=== PATIENT | female | born 1955 | race Caucasian/White ===

== ENCOUNTER 2019-11-13 04:33 | Outpatient (RCR) | payer OTHER, SELFPAY ==
[2019-10-30] MEDS: Normal Saline Flush 10 ML SYR IVP (09:10)
[2019-10-30] MEDS: Heparin 500 UNITS/5 ML SYRINGE IV (09:10)
[2019-10-30 09:41] LABS: Abs Immature Grans 0.39 10^3/uL (0.0-0.06); HCT 31.3 % (36.0-46.0); HGB 10.4 g/dL (11.2-15.7); MCH 30.1 pg (27.0-33.0); MCHC 33.2 % (32.0-36.0); MCV 90.7 fL (80-95); MPV 10.4 fL (8.0-11.0); Nucleated RBC 0 %; RBC 3.45 10^6/uL (3.93-5.22); RDW 13.9 % (11.7-14.6); RDW-SD 45.9 fL; WBC 6.67 10^3/uL (4.4-10.8)
[2019-10-30 09:59] LABS: ALT 69 U/L (14-59); AST 32 U/L (15-37); Albumin 2.2 g/dL (3.4-5.0); Alkaline Phosphatase 380 U/L (46-116); Anion Gap 6.1 mmol/L (3-11); BUN 23 mg/dL (7-18); Bilirubin, Total 0.5 mg/dL (0.2-1.0); CO2 26.9 mmol/L (21.0-32.0); CREATININE 0.71 mg/dL (0.55-1.02); Calcium 7.9 mg/dL (8.5-10.1); Chloride 101 mmol/L (98-107); Glucose 119 mg/dL (74-106); Sodium 134 mmol/L (136-145)
[2019-10-30 10:01] LABS: Absolute Basophil Count 0.07 10^3/uL (0.0-0.2); Absolute Eosinophil Count 0.07 10^3/uL (0.0-0.7); Absolute Neutrophil Count 2.93 10^3/uL (1.2-6.7); Bands % 4; Diff Comment Manual Differential; Myelocytes % 3; Polychromasia Present
[2019-10-30 10:02] LABS: Platelet Count 696 10^3/uL (130-400)
[2019-11-13] MEDS: Normal Saline Flush 10 ML SYR IVP (07:30)
[2019-11-13 07:53] LABS: Abs Immature Grans 0.07 10^3/uL (0.0-0.06); Absolute Basophil Count 0.01 10^3/uL (0.0-0.2); Absolute Eosinophil Count 0.03 10^3/uL (0.0-0.7); Absolute Lymphocyte Count 2.13 10^3/uL (1.2-3.4); Absolute Neutrophil Count 3.97 10^3/uL (1.2-6.7); Basophils % 0.1; Eosinophils % 0.4; HCT 34.7 % (36.0-46.0); HGB 11.6 g/dL (11.2-15.7); Immature Grans % 0.9; Lymphocytes % 28.7; MCH 30.1 pg (27.0-33.0); MCHC 33.4 % (32.0-36.0); MCV 90.1 fL (80-95); MPV 10.2 fL (8.0-11.0); Monocytes % 16.2; Neutrophils % 53.7; Nucleated RBC 0 %; Platelet Count 310 10^3/uL (130-400); RBC 3.85 10^6/uL (3.93-5.22); RDW 14.5 % (11.7-14.6); RDW-SD 46.4 fL; WBC 7.41 10^3/uL (4.4-10.8)
[2019-11-13 08:09] LABS: ALT 62 U/L (14-59); AST 36 U/L (15-37); Albumin 2.4 g/dL (3.4-5.0); Alkaline Phosphatase 158 U/L (46-116); Anion Gap 8.2 mmol/L (3-11); BUN 21 mg/dL (7-18); Bilirubin, Total 0.4 mg/dL (0.2-1.0); CO2 23.8 mmol/L (21.0-32.0); CREATININE 0.58 mg/dL (0.55-1.02); Chloride 104 mmol/L (98-107); Glucose 149 mg/dL (74-106); Magnesium 2.1 mg/dL (1.8-2.4); Potassium 3.8 mmol/L (3.5-5.1); Sodium 136 mmol/L (136-145); Total Protein 6.2 g/dL (6.4-8.2); Triglyceride 102 mg/dL (<150)
[2019-11-13 08:20] LABS: PHOSPHORUS 3.8 mg/dL (2.6-4.7)
== END 2019-11-18 23:59 | disposition home or self-care (01) ==
LOC: INF 04:33
PROVIDERS: PCP Family Medicine; Visit Provider Internal Medicine Hematology & Oncology
DX: C16.9 Malignant neoplasm of stomach, unspecified (principal); E43 Unspecified severe protein-calorie malnutrition; Z45.2 Encounter for adjustment and management of vascular access device
CPT/HCPCS: 36591; 80053; 83735; 84100; 84478; 85025

== ENCOUNTER 2019-12-11 05:47 | Outpatient (RCR) | payer OTHER, SELFPAY ==
[2019-11-27] MEDS: Normal Saline Flush 10 ML SYR IVP (08:09)
[2019-11-27 08:13] LABS: Abs Immature Grans 0.44 10^3/uL (0.0-0.06); HGB 11.2 g/dL (11.2-15.7); MCH 29.6 pg (27.0-33.0); MCHC 32.9 % (32.0-36.0); MCV 89.9 fL (80-95); MPV 10.2 fL (8.0-11.0); Nucleated RBC 0 %; Platelet Count 298 10^3/uL (130-400); RBC 3.78 10^6/uL (3.93-5.22); RDW 15.3 % (11.7-14.6); RDW-SD 49.8 fL; WBC 6.61 10^3/uL (4.4-10.8)
[2019-11-27 08:25] LABS: ALT 68 U/L (14-59); AST 44 U/L (15-37); Albumin 2.1 g/dL (3.4-5.0); Alkaline Phosphatase 189 U/L (46-116); BUN 23 mg/dL (7-18); Bilirubin, Total 0.3 mg/dL (0.2-1.0); CREATININE 0.63 mg/dL (0.55-1.02); Calcium 8.3 mg/dL (8.5-10.1); Chloride 105 mmol/L (98-107); Glucose 129 mg/dL (74-106); Potassium 4.1 mmol/L (3.5-5.1); Sodium 138 mmol/L (136-145); Total Protein 6.1 g/dL (6.4-8.2)
[2019-11-27 08:33] LABS: Absolute Lymphocyte Count 2.78 10^3/uL (1.2-3.4); Absolute Monocyte Count 1.19 10^3/uL (0.1-0.8); Absolute Neutrophil Count 2.12 10^3/uL (1.2-6.7); Atypical Lymphocytes % 2; Bands % 6; Diff Comment Manual Differential; Metamyelocytes % 1; Myelocytes % 4
[2019-11-27 08:34] LABS: Polychromasia Present
[2019-11-27 18:45] LABS: CEA 2.3 ng/mL (See Note)
[2019-12-11 09:25] LABS: Abs Immature Grans 0.04 10^3/uL (0.0-0.06); Absolute Basophil Count 0.01 10^3/uL (0.0-0.2); Absolute Eosinophil Count 0.08 10^3/uL (0.0-0.7); Absolute Monocyte Count 0.77 10^3/uL (0.1-0.8); Absolute Neutrophil Count 1.88 10^3/uL (1.2-6.7); Basophils % 0.2; Eosinophils % 1.5; HCT 33.8 % (36.0-46.0); Immature Grans % 0.8; Lymphocytes % 47.3; MCH 29.4 pg (27.0-33.0); MCHC 32.5 % (32.0-36.0); MCV 90.4 fL (80-95); MPV 10.9 fL (8.0-11.0); Monocytes % 14.6; Neutrophils % 35.6; Nucleated RBC 0 %; Platelet Count 253 10^3/uL (130-400); RBC 3.74 10^6/uL (3.93-5.22); RDW 15.9 % (11.7-14.6); RDW-SD 51.6 fL; WBC 5.28 10^3/uL (4.4-10.8)
[2019-12-11] MEDS: Normal Saline Flush 10 ML SYR IVP (09:33)
[2019-12-11 09:40] LABS: ALT 45 U/L (14-59); AST 33 U/L (15-37); Albumin 2.6 g/dL (3.4-5.0); Alkaline Phosphatase 137 U/L (46-116); Anion Gap 7.7 mmol/L (3-11); BUN 26 mg/dL (7-18); Bilirubin, Total 0.3 mg/dL (0.2-1.0); CO2 24.3 mmol/L (21.0-32.0); CREATININE 0.76 mg/dL (0.55-1.02); Calcium 8.8 mg/dL (8.5-10.1); Chloride 104 mmol/L (98-107); Glucose 141 mg/dL (74-106); Potassium 4.5 mmol/L (3.5-5.1); Sodium 136 mmol/L (136-145); Total Protein 6.9 g/dL (6.4-8.2); Triglyceride 178 mg/dL (<150)
[2019-12-11 09:50] LABS: PHOSPHORUS 5.5 mg/dL (2.6-4.7)
[2019-12-11 21:46] LABS: CEA 2.7 ng/mL (See Note)
== END 2019-12-19 23:59 | disposition home or self-care (01) ==
LOC: INF 05:47
PROVIDERS: PCP Family Medicine; Visit Provider Internal Medicine Hematology & Oncology
DX: C16.9 Malignant neoplasm of stomach, unspecified (principal); Z45.2 Encounter for adjustment and management of vascular access device; E43 Unspecified severe protein-calorie malnutrition
CPT/HCPCS: 36591; 80053; 82378; 83735; 84100; 84478; 85025

== ENCOUNTER 2020-01-15 05:31 | Outpatient (RCR) | payer OTHER, SELFPAY ==
[2019-12-25] MEDS: Normal Saline Flush 10 ML SYR IVP (08:21)
[2019-12-25 08:38] LABS: Abs Immature Grans 0.58 10^3/uL (0.0-0.06); Absolute Basophil Count 0.01 10^3/uL (0.0-0.2); Absolute Monocyte Count 2.17 10^3/uL (0.1-0.8); Absolute Neutrophil Count 6.27 10^3/uL (1.2-6.7); Basophils % 0.1; HCT 31.7 % (36.0-46.0); HGB 10.3 g/dL (11.2-15.7); Immature Grans % 5.7; Lymphocytes % 10.9; MCH 28.8 pg (27.0-33.0); MCHC 32.5 % (32.0-36.0); MCV 88.5 fL (80-95); MPV 11.5 fL (8.0-11.0); Monocytes % 21.4; Neutrophils % 61.9; Nucleated RBC 0 %; Platelet Count 181 10^3/uL (130-400); RBC 3.58 10^6/uL (3.93-5.22); RDW-SD 51.5 fL; WBC 10.13 10^3/uL (4.4-10.8)
[2019-12-25 08:47] LABS: ALT 235 U/L (14-59); AST 133 U/L (15-37); Albumin 2.4 g/dL (3.4-5.0); Alkaline Phosphatase 420 U/L (46-116); Anion Gap 11.3 mmol/L (3-11); BUN 24 mg/dL (7-18); Bilirubin, Total 1.2 mg/dL (0.2-1.0); CO2 23.7 mmol/L (21.0-32.0); CREATININE 0.84 mg/dL (0.55-1.02); Calcium 8.5 mg/dL (8.5-10.1); Chloride 103 mmol/L (98-107); Glucose 142 mg/dL (74-106); Potassium 3.9 mmol/L (3.5-5.1); Sodium 138 mmol/L (136-145); Total Protein 7.1 g/dL (6.4-8.2)
[2019-12-29 14:46] LABS: CEA 2.5 ng/ml
[2020-01-01] MEDS: Normal Saline Flush 10 ML SYR IVP (08:08)
[2020-01-01 08:13] LABS: Abs Immature Grans 3.38 10^3/uL (0.0-0.06); HCT 30.3 % (36.0-46.0); HGB 9.9 g/dL (11.2-15.7); MCH 28.9 pg (27.0-33.0); MCHC 32.7 % (32.0-36.0); MCV 88.3 fL (80-95); MPV 10.8 fL (8.0-11.0); Nucleated RBC 0 %; RBC 3.43 10^6/uL (3.93-5.22); RDW 17.1 % (11.7-14.6); WBC 19.71 10^3/uL (4.4-10.8)
[2020-01-01 08:32] LABS: ALT 68 U/L (14-59); AST 43 U/L (15-37); Albumin 2.4 g/dL (3.4-5.0); Alkaline Phosphatase 571 U/L (46-116); Anion Gap 13.3 mmol/L (3-11); BUN 25 mg/dL (7-18); Bilirubin, Total 0.3 mg/dL (0.2-1.0); CO2 21.7 mmol/L (21.0-32.0); CREATININE 0.84 mg/dL (0.55-1.02); Chloride 103 mmol/L (98-107); Glucose 105 mg/dL (74-106); Potassium 4.8 mmol/L (3.5-5.1); Sodium 138 mmol/L (136-145); Total Protein 7.9 g/dL (6.4-8.2)
[2020-01-01 08:35] LABS: Absolute Lymphocyte Count 3.35 10^3/uL (1.2-3.4); Absolute Neutrophil Count 11.63 10^3/uL (1.2-6.7); Bands % 9; Platelet Count 519 10^3/uL (130-400)
[2020-01-01 08:36] LABS: Absolute Eosinophil Count 0.39 10^3/uL (0.0-0.7); Absolute Monocyte Count 1.58 10^3/uL (0.1-0.8); Metamyelocytes % 6; Myelocytes % 8
[2020-01-01 08:37] LABS: Anisocytosis 1+; Diff Comment Manual Differential; Poikilocytes 1+; Polychromasia Present
[2020-01-04 16:23] LABS: CEA 1.4 ng/ml
[2020-01-15 10:31] LABS: Abs Immature Grans 0.01 10^3/uL (0.0-0.06); Absolute Basophil Count 0.01 10^3/uL (0.0-0.2); Absolute Eosinophil Count 0.06 10^3/uL (0.0-0.7); Absolute Lymphocyte Count 1.35 10^3/uL (1.2-3.4); Absolute Monocyte Count 0.72 10^3/uL (0.1-0.8); Basophils % 0.2; Eosinophils % 1.2; HCT 29.1 % (36.0-46.0); HGB 9.4 g/dL (11.2-15.7); Immature Grans % 0.2; Lymphocytes % 26.7; MCH 28.5 pg (27.0-33.0); MCHC 32.3 % (32.0-36.0); MCV 88.2 fL (80-95); MPV 10.4 fL (8.0-11.0); Monocytes % 14.3; Neutrophils % 57.4; Nucleated RBC 0 %; Platelet Count 192 10^3/uL (130-400); RDW 17.6 % (11.7-14.6); RDW-SD 55.8 fL; WBC 5.05 10^3/uL (4.4-10.8)
[2020-01-15 10:44] LABS: ALT 68 U/L (14-59); AST 56 U/L (15-37); Albumin 2.7 g/dL (3.4-5.0); Alkaline Phosphatase 301 U/L (46-116); Anion Gap 8.6 mmol/L (3-11); BUN 26 mg/dL (7-18); Bilirubin, Total 0.5 mg/dL (0.2-1.0); CO2 24.4 mmol/L (21.0-32.0); CREATININE 0.74 mg/dL (0.55-1.02); Calcium 8.8 mg/dL (8.5-10.1); Chloride 105 mmol/L (98-107); Glucose 100 mg/dL (74-106); Magnesium 2.1 mg/dL (1.8-2.4); PHOSPHORUS 4.3 mg/dL (2.6-4.7); Potassium 4.6 mmol/L (3.5-5.1); Sodium 138 mmol/L (136-145); Total Protein 7.2 g/dL (6.4-8.2)
[2020-01-15 18:31] LABS: CEA 1.6 ng/mL (See Note)
== END 2020-01-18 23:59 | disposition home or self-care (01) ==
LOC: INF 05:31
PROVIDERS: PCP Family Medicine; Visit Provider Internal Medicine Hematology & Oncology
DX: C16.9 Malignant neoplasm of stomach, unspecified (principal); Z45.2 Encounter for adjustment and management of vascular access device; E43 Unspecified severe protein-calorie malnutrition; C79.89 Secondary malignant neoplasm of other specified sites
CPT/HCPCS: 36591; 80053; 82378; 83735; 84100; 85025

== ENCOUNTER 2020-01-15 17:51 | Outpatient (REF) | payer OTHER, SELFPAY ==
[2020-01-15 20:19] LABS: Bilirubin Negative (Negative); Blood Large (Negative); Clarity Cloudy (Clear); Glucose Negative (Negative); Ketones Negative (Negative); Leukocyte Esterase Negative (Negative); Nitrite Negative (Negative); Urobilinogen 0.2 EU/dL (Up TO 0.2); pH 5.5 (5-8)
[2020-01-15 20:30] LABS: RBC >50 HPF (0-2)
[2020-01-15 20:31] LABS: Bacteria Negative HPF (Negative); C & S Indicated? No; Casts Negative LPF (Negative); Crystals Negative HPF (Negative); Epithelial Cells Few HPF (Negative); Mucus Moderate (Negative); Other Cells Few Yeast (Negative)
== END 2020-01-15 18:11 ==
LOC: NCHCN 17:51
PROVIDERS: PCP Family Medicine; Visit Provider Nurse Practitioner Family
DX: C79.9 Secondary malignant neoplasm of unspecified site (principal); C16.9 Malignant neoplasm of stomach, unspecified
CPT/HCPCS: 81003; 81015

== ENCOUNTER 2020-02-18 02:23 | Outpatient (RCR) | payer OTHER, SELFPAY ==
[2020-01-29] MEDS: Normal Saline Flush 10 ML SYR IVP (08:03)
[2020-01-29 08:14] LABS: Abs Immature Grans 0.02 10^3/uL (0.0-0.06); Absolute Basophil Count 0.02 10^3/uL (0.0-0.2); Absolute Eosinophil Count 0.04 10^3/uL (0.0-0.7); Absolute Lymphocyte Count 2.37 10^3/uL (1.2-3.4); Absolute Monocyte Count 0.94 10^3/uL (0.1-0.8); Absolute Neutrophil Count 3.01 10^3/uL (1.2-6.7); Basophils % 0.3; Eosinophils % 0.6; HCT 28.3 % (36.0-46.0); HGB 9.2 g/dL (11.2-15.7); Immature Grans % 0.3; MCH 28.8 pg (27.0-33.0); MCHC 32.5 % (32.0-36.0); MCV 88.7 fL (80-95); MPV 10.8 fL (8.0-11.0); Monocytes % 14.7; Neutrophils % 47.1; Nucleated RBC 0 %; Platelet Count 261 10^3/uL (130-400); RBC 3.19 10^6/uL (3.93-5.22); RDW-SD 54.4 fL
[2020-01-29 08:21] LABS: ALT 60 U/L (14-59); AST 54 U/L (15-37); Albumin 2.6 g/dL (3.4-5.0); Alkaline Phosphatase 275 U/L (46-116); Anion Gap 9.6 mmol/L (3-11); BUN 26 mg/dL (7-18); Bilirubin, Total 0.3 mg/dL (0.2-1.0); CO2 24.4 mmol/L (21.0-32.0); CREATININE 0.71 mg/dL (0.55-1.02); Calcium 8.7 mg/dL (8.5-10.1); Chloride 104 mmol/L (98-107); Glucose 121 mg/dL (74-106); Magnesium 2.2 mg/dL (1.8-2.4); Potassium 4.6 mmol/L (3.5-5.1); Sodium 138 mmol/L (136-145); Total Protein 7.1 g/dL (6.4-8.2); Triglyceride 149 mg/dL (<150)
[2020-01-29 08:31] LABS: PHOSPHORUS 4.7 mg/dL (2.6-4.7)
[2020-01-29 10:38] LABS: Iron 65 ug/dL (50-170); Total Iron Binding Capacity 345 ug/dL (250-450); Transferrin Sat 19 % (15-50)
[2020-01-29 10:53] LABS: Ferritin 110 ng/mL (8-252)
[2020-01-29 19:21] LABS: CEA 1.6 ng/mL (See Note)
[2020-02-18 10:48] LABS: Abs Immature Grans 0.08 10^3/uL (0.0-0.06); Absolute Basophil Count 0.03 10^3/uL (0.0-0.2); Absolute Eosinophil Count 0.04 10^3/uL (0.0-0.7); Absolute Lymphocyte Count 2.65 10^3/uL (1.2-3.4); Absolute Monocyte Count 1.11 10^3/uL (0.1-0.8); Absolute Neutrophil Count 3.21 10^3/uL (1.2-6.7); Basophils % 0.4; Eosinophils % 0.6; HCT 27.7 % (36.0-46.0); HGB 8.7 g/dL (11.2-15.7); Immature Grans % 1.1; Lymphocytes % 37.2; MCH 28.1 pg (27.0-33.0); MCHC 31.4 % (32.0-36.0); MCV 89.4 fL (80-95); MPV 10.8 fL (8.0-11.0); Monocytes % 15.6; Neutrophils % 45.1; Nucleated RBC 0 %; Platelet Count 381 10^3/uL (130-400); RDW-SD 53.9 fL; WBC 7.12 10^3/uL (4.4-10.8)
[2020-02-18] MEDS: Normal Saline Flush 10 ML SYR IVP (10:52)
[2020-02-18 11:01] LABS: ALT 97 U/L (14-59); AST 88 U/L (15-37); Alkaline Phosphatase 395 U/L (46-116); BUN 16 mg/dL (7-18); Bilirubin, Total 0.6 mg/dL (0.2-1.0); CREATININE 1.11 mg/dL (0.55-1.02); Calcium 9.2 mg/dL (8.5-10.1); Chloride 105 mmol/L (98-107); Estimated GFR 49.49 (mL/min/1.73m2); Glucose 111 mg/dL (74-106); Magnesium 1.9 mg/dL (1.8-2.4); PHOSPHORUS 5.9 mg/dL (2.6-4.7); Sodium 137 mmol/L (136-145); Total Protein 7.4 g/dL (6.4-8.2)
[2020-02-18 11:02] LABS: Anisocytosis 1+; Diff Comment RBC Morph Reviewed; Hypochromasia 1+; Microcytosis 1+; Polychromasia Present
[2020-02-18 11:03] LABS: Poikilocytes 1+
[2020-02-18 11:11] LABS: Triglyceride 129 mg/dL (<150)
[2020-02-19 08:41] LABS: CEA 1.2 ng/mL (See Note)
== END 2020-02-18 23:59 | disposition home or self-care (01) ==
LOC: INF 02:23
PROVIDERS: PCP Family Medicine; Visit Provider Internal Medicine Hematology & Oncology
DX: C16.9 Malignant neoplasm of stomach, unspecified (principal); Z45.2 Encounter for adjustment and management of vascular access device; E43 Unspecified severe protein-calorie malnutrition; R31.0 Gross hematuria; C79.89 Secondary malignant neoplasm of other specified sites
CPT/HCPCS: 36591; 80053; 82378; 82728; 83540; 83550; 83735; 84100; 84478; 85025

== ENCOUNTER 2020-02-24 04:25 | Outpatient (CLI) | payer OTHER, SELFPAY | END 2020-02-24 04:45 | PROVIDERS: PCP Family Medicine; Visit Provider Urology | DX: N13.30 Unspecified hydronephrosis (principal) | CPT/HCPCS: 87086 ==

== ENCOUNTER 2020-03-18 04:53 | Outpatient (RCR) | payer OTHER, SELFPAY ==
[2020-03-04] MEDS: Normal Saline Flush 10 ML SYR IVP (08:51)
[2020-03-04 09:06] LABS: Abs Immature Grans 0.02 10^3/uL (0.0-0.06); Absolute Basophil Count 0.01 10^3/uL (0.0-0.2); Absolute Eosinophil Count 0.13 10^3/uL (0.0-0.7); Absolute Lymphocyte Count 2.21 10^3/uL (1.2-3.4); Absolute Monocyte Count 0.99 10^3/uL (0.1-0.8); Absolute Neutrophil Count 4.29 10^3/uL (1.2-6.7); Basophils % 0.1; Eosinophils % 1.7; HCT 22.9 % (36.0-46.0); HGB 7.5 g/dL (11.2-15.7); Immature Grans % 0.3; Lymphocytes % 28.9; MCH 28.1 pg (27.0-33.0); MCHC 32.8 % (32.0-36.0); MCV 85.8 fL (80-95); MPV 12.1 fL (8.0-11.0); Monocytes % 12.9; Neutrophils % 56.1; Nucleated RBC 0 %; Platelet Count 296 10^3/uL (130-400); RBC 2.67 10^6/uL (3.93-5.22); RDW 16.7 % (11.7-14.6); RDW-SD 50.9 fL; WBC 7.65 10^3/uL (4.4-10.8)
[2020-03-04 09:27] LABS: ALT 57 U/L (14-59); AST 52 U/L (15-37); Albumin 2.7 g/dL (3.4-5.0); Alkaline Phosphatase 316 U/L (46-116); Anion Gap 8.2 mmol/L (3-11); BUN 23 mg/dL (7-18); Bilirubin, Total 0.4 mg/dL (0.2-1.0); CO2 23.8 mmol/L (21.0-32.0); Calcium 8.5 mg/dL (8.5-10.1); Chloride 107 mmol/L (98-107); Glucose 124 mg/dL (74-106); Potassium 4.5 mmol/L (3.5-5.1); Sodium 139 mmol/L (136-145); Total Protein 6.9 g/dL (6.4-8.2)
[2020-03-04 19:27] LABS: CEA 1.5 ng/mL (See Note)
[2020-03-07] VITALS (7 sets, daily range): BP systolic 90–108; BP diastolic 58–71; PULSE 74–90; RESP 18–19; TEMP 36.5–37.4; O2SAT 97–98
[2020-03-07] MEDS: Heparin 500 UNITS/5 ML SYRINGE IV (10:30)
[2020-03-07] MEDS: Normal Saline Flush 10 ML SYR IVP (10:30)
[2020-03-18] MEDS: Normal Saline Flush 10 ML SYR IVP (08:30)
[2020-03-18 08:45] LABS: Abs Immature Grans 0.02 10^3/uL (0.0-0.06); Absolute Basophil Count 0.01 10^3/uL (0.0-0.2); Absolute Eosinophil Count 0.11 10^3/uL (0.0-0.7); Absolute Lymphocyte Count 2.05 10^3/uL (1.2-3.4); Absolute Monocyte Count 1.42 10^3/uL (0.1-0.8); Absolute Neutrophil Count 3.43 10^3/uL (1.2-6.7); Basophils % 0.1; Eosinophils % 1.6; HCT 28.4 % (36.0-46.0); HGB 8.9 g/dL (11.2-15.7); Immature Grans % 0.3; Lymphocytes % 29.1; MCH 26.9 pg (27.0-33.0); MCHC 31.3 % (32.0-36.0); MCV 85.8 fL (80-95); Monocytes % 20.2; Neutrophils % 48.7; Nucleated RBC 0 %; Platelet Count 298 10^3/uL (130-400); RBC 3.31 10^6/uL (3.93-5.22); RDW 16.5 % (11.7-14.6); RDW-SD 50.5 fL; WBC 7.04 10^3/uL (4.4-10.8)
[2020-03-18 08:59] LABS: Anisocytosis 2+; Diff Comment RBC Morph Reviewed; Hypochromasia 1+; Microcytosis 1+
[2020-03-18 09:00] LABS: Poikilocytes 2+
[2020-03-18 09:53] LABS: ALT 50 U/L (14-59); AST 38 U/L (15-37); Albumin 2.5 g/dL (3.4-5.0); Alkaline Phosphatase 352 U/L (46-116); Anion Gap 8.5 mmol/L (3-11); BUN 23 mg/dL (7-18); Bilirubin, Total 0.4 mg/dL (0.2-1.0); CO2 22.5 mmol/L (21.0-32.0); CREATININE 0.8 mg/dL (0.55-1.02); Calcium 8.6 mg/dL (8.5-10.1); Chloride 106 mmol/L (98-107); Glucose 120 mg/dL (74-106); Magnesium 2.2 mg/dL (1.8-2.4); Potassium 4.1 mmol/L (3.5-5.1); Sodium 137 mmol/L (136-145); Triglyceride 122 mg/dL (<150)
[2020-03-18 09:56] LABS: PHOSPHORUS 4.4 mg/dL (2.6-4.7)
== END 2020-03-20 23:59 | disposition home or self-care (01) ==
LOC: INF 04:53
PROVIDERS: PCP Family Medicine; Visit Provider Internal Medicine Hematology & Oncology
DX: C16.9 Malignant neoplasm of stomach, unspecified (principal); C79.9 Secondary malignant neoplasm of unspecified site; E43 Unspecified severe protein-calorie malnutrition; R31.0 Gross hematuria; Z45.2 Encounter for adjustment and management of vascular access device
CPT/HCPCS: 36430; 36591; 80053; 86850; 86900; 86901; 86920; 82378; 83735; 84100; 84478; 85025; P9016

== ENCOUNTER 2020-04-15 04:42 | Outpatient (RCR) | payer OTHER, SELFPAY ==
[2020-03-21 00:14] VITALS: BP 108/71; PULSE 74; RESP 18; TEMP 36.5
[2020-04-01] MEDS: Normal Saline Flush 10 ML SYR IVP (10:24)
[2020-04-01 10:30] LABS: Abs Immature Grans 0.02 10^3/uL (0.0-0.06); Absolute Basophil Count 0.01 10^3/uL (0.0-0.2); Absolute Eosinophil Count 0.06 10^3/uL (0.0-0.7); Absolute Lymphocyte Count 1.45 10^3/uL (1.2-3.4); Absolute Monocyte Count 1.24 10^3/uL (0.1-0.8); Absolute Neutrophil Count 2.27 10^3/uL (1.2-6.7); Basophils % 0.2; Eosinophils % 1.2; HCT 25.6 % (36.0-46.0); HGB 8.1 g/dL (11.2-15.7); Immature Grans % 0.4; Lymphocytes % 28.7; MCH 26.5 pg (27.0-33.0); MCHC 31.6 % (32.0-36.0); MCV 83.7 fL (80-95); MPV 12.2 fL (8.0-11.0); Monocytes % 24.6; Neutrophils % 44.9; Nucleated RBC 0 %; Platelet Count 299 10^3/uL (130-400); RBC 3.06 10^6/uL (3.93-5.22); RDW 16.8 % (11.7-14.6); RDW-SD 50.2 fL; WBC 5.05 10^3/uL (4.4-10.8)
[2020-04-01 10:43] LABS: ALT 50 U/L (14-59); AST 47 U/L (15-37); Albumin 2.6 g/dL (3.4-5.0); Alkaline Phosphatase 429 U/L (46-116); Anion Gap 8.8 mmol/L (3-11); BUN 9 mg/dL (7-18); Bilirubin, Total 0.6 mg/dL (0.2-1.0); CO2 25.2 mmol/L (21.0-32.0); Calcium 8.9 mg/dL (8.5-10.1); Chloride 103 mmol/L (98-107); Estimated GFR 55.82 (mL/min/1.73m2); Glucose 99 mg/dL (74-106); Potassium 4.1 mmol/L (3.5-5.1); Sodium 137 mmol/L (136-145); Total Protein 7.1 g/dL (6.4-8.2)
[2020-04-01 14:19] LABS: Magnesium 2.3 mg/dL (1.8-2.4); PHOSPHORUS 5.1 mg/dL (2.6-4.7)
[2020-04-01 14:33] LABS: Triglyceride 114 mg/dL (<150)
[2020-04-01 18:54] LABS: CEA 1.8 ng/mL (See Note)
[2020-04-04] VITALS (7 sets, daily range): BP systolic 90–111; BP diastolic 47–65; PULSE 75–88; RESP 12–18; TEMP 36.1–37.8; O2SAT 95–98
[2020-04-04] MEDS: Normal Saline Flush 10 ML SYR IVP (11:19)
[2020-04-04] MEDS: Heparin 500 UNITS/5 ML SYRINGE IV (11:19)
[2020-04-15] MEDS: Normal Saline Flush 10 ML SYR IVP (09:05)
[2020-04-15 09:07] LABS: Abs Immature Grans 0.01 10^3/uL (0.0-0.06); Absolute Basophil Count 0.01 10^3/uL (0.0-0.2); Absolute Eosinophil Count 0.09 10^3/uL (0.0-0.7); Absolute Lymphocyte Count 1.75 10^3/uL (1.2-3.4); Absolute Monocyte Count 1.11 10^3/uL (0.1-0.8); Absolute Neutrophil Count 1.72 10^3/uL (1.2-6.7); Basophils % 0.2; Eosinophils % 1.9; HCT 25.8 % (36.0-46.0); HGB 8.4 g/dL (11.2-15.7); Immature Grans % 0.2; Lymphocytes % 37.3; MCH 26.8 pg (27.0-33.0); MCHC 32.6 % (32.0-36.0); MCV 82.4 fL (80-95); Monocytes % 23.7; Neutrophils % 36.7; Nucleated RBC 0 %; Platelet Count 271 10^3/uL (130-400); RBC 3.13 10^6/uL (3.93-5.22); RDW 17.2 % (11.7-14.6); RDW-SD 50.7 fL; WBC 4.69 10^3/uL (4.4-10.8)
[2020-04-15 09:21] LABS: ALT 53 U/L (14-59); AST 48 U/L (15-37); Albumin 2.6 g/dL (3.4-5.0); Alkaline Phosphatase 379 U/L (46-116); Anion Gap 9.8 mmol/L (3-11); BUN 14 mg/dL (7-18); Bilirubin, Total 0.5 mg/dL (0.2-1.0); CO2 24.2 mmol/L (21.0-32.0); Calcium 8.9 mg/dL (8.5-10.1); Chloride 104 mmol/L (98-107); Estimated GFR 55.82 (mL/min/1.73m2); Glucose 99 mg/dL (74-106); PHOSPHORUS 4.9 mg/dL (2.6-4.7); Potassium 3.9 mmol/L (3.5-5.1); Sodium 138 mmol/L (136-145); Total Protein 7.2 g/dL (6.4-8.2)
[2020-04-15 09:32] LABS: Triglyceride 136 mg/dL (<150)
[2020-04-15 17:39] LABS: CEA 1.7 ng/mL (See Note)
== END 2020-04-17 23:59 | disposition home or self-care (01) ==
LOC: INF 04:42
PROVIDERS: PCP Family Medicine; Visit Provider Internal Medicine Hematology & Oncology
DX: C16.9 Malignant neoplasm of stomach, unspecified (principal); D63.0 Anemia in neoplastic disease; Z79.899 Other long term (current) drug therapy; K92.2 Gastrointestinal hemorrhage, unspecified; C79.9 Secondary malignant neoplasm of unspecified site; Z45.2 Encounter for adjustment and management of vascular access device
CPT/HCPCS: 36430; 36591; 80053; 86850; 86900; 86901; 86920; 82378; 83735; 84100; 84478; 85025; P9016

== ENCOUNTER 2020-05-12 07:25 | Outpatient (RCR) | payer OTHER, SELFPAY ==
[2020-04-18 00:09] VITALS: BP 111/60; PULSE 75; RESP 12; TEMP 36.4
[2020-04-28] VITALS (9 sets, daily range): BP systolic 94–123; BP diastolic 57–79; PULSE 85–101; RESP 16; TEMP 36.5–37.8; O2SAT 97–99
[2020-04-28 08:19] LABS: Abs Immature Grans 0.02 10^3/uL (0.0-0.06); Absolute Basophil Count 0.02 10^3/uL (0.0-0.2); Absolute Eosinophil Count 0.07 10^3/uL (0.0-0.7); Absolute Monocyte Count 0.93 10^3/uL (0.1-0.8); Absolute Neutrophil Count 2.14 10^3/uL (1.2-6.7); Basophils % 0.4; Eosinophils % 1.5; HCT 24.1 % (36.0-46.0); HGB 7.6 g/dL (11.2-15.7); Immature Grans % 0.4; Lymphocytes % 30.6; MCH 25.9 pg (27.0-33.0); MCHC 31.5 % (32.0-36.0); MPV 12.8 fL (8.0-11.0); Monocytes % 20.3; Neutrophils % 46.8; Nucleated RBC 0 %; Platelet Count 271 10^3/uL (130-400); RBC 2.94 10^6/uL (3.93-5.22); RDW 17.8 % (11.7-14.6); RDW-SD 50.9 fL; WBC 4.58 10^3/uL (4.4-10.8)
[2020-04-28] MEDS: Normal Saline Flush 10 ML SYR IVP (08:19)
[2020-04-28 08:36] LABS: Anisocytosis 2+; Diff Comment Diff Reviewed; Hypochromasia 2+; Microcytosis 2+; Ovalocytes 2+; Polychromasia Present
[2020-04-28 08:37] LABS: Poikilocytes 2+
[2020-05-12] MEDS: Normal Saline Flush 10 ML SYR IVP (07:57)
[2020-05-12 08:08] LABS: Abs Immature Grans 0.03 10^3/uL (0.0-0.06); Absolute Basophil Count 0.02 10^3/uL (0.0-0.2); Absolute Eosinophil Count 0.05 10^3/uL (0.0-0.7); Absolute Lymphocyte Count 1.12 10^3/uL (1.2-3.4); Absolute Monocyte Count 0.89 10^3/uL (0.1-0.8); Absolute Neutrophil Count 3.18 10^3/uL (1.2-6.7); Basophils % 0.4; Eosinophils % 0.9; HCT 25.5 % (36.0-46.0); HGB 8.1 g/dL (11.2-15.7); Immature Grans % 0.6; Lymphocytes % 21.2; MCH 27.3 pg (27.0-33.0); MCHC 31.8 % (32.0-36.0); MCV 85.9 fL (80-95); Monocytes % 16.8; Neutrophils % 60.1; Nucleated RBC 0 %; RBC 2.97 10^6/uL (3.93-5.22); RDW 20.8 % (11.7-14.6); RDW-SD 62.4 fL; WBC 5.29 10^3/uL (4.4-10.8)
[2020-05-12 08:18] LABS: ALT 47 U/L (14-59); AST 41 U/L (15-37); Albumin 2.5 g/dL (3.4-5.0); Alkaline Phosphatase 325 U/L (46-116); Anion Gap 10.8 mmol/L (3-11); BUN 21 mg/dL (7-18); Bilirubin, Total 0.4 mg/dL (0.2-1.0); CO2 23.2 mmol/L (21.0-32.0); CREATININE 0.8 mg/dL (0.55-1.02); Calcium 8.7 mg/dL (8.5-10.1); Chloride 105 mmol/L (98-107); Glucose 119 mg/dL (74-106); Potassium 4.4 mmol/L (3.5-5.1); Sodium 139 mmol/L (136-145); Total Protein 6.9 g/dL (6.4-8.2)
[2020-05-12 08:33] LABS: Anisocytosis 3+; Diff Comment Diff Reviewed; Hypochromasia 1+; Macrocytosis 1+; Microcytosis 2+; Polychromasia Present
[2020-05-12 08:34] LABS: Poikilocytes 1+
[2020-05-12 08:35] LABS: Platelet Count 149 10^3/uL (130-400)
[2020-05-12 09:30] VITALS: BP 104/66; PULSE 100; RESP 20; TEMP 37.4; O2SAT 97
[2020-05-12 09:41] VITALS: BP 94/60; PULSE 94; RESP 16; TEMP 37.7; O2SAT 97
[2020-05-12 10:06] VITALS: BP 96/60; PULSE 95; RESP 16; TEMP 37.7; O2SAT 97
[2020-05-12 10:26] VITALS: BP 93/56; PULSE 90; RESP 16; TEMP 37.7; O2SAT 94
[2020-05-12 11:26] VITALS: BP 94/60; PULSE 90; RESP 16; TEMP 37.7; O2SAT 97
[2020-05-12 11:46] VITALS: BP 110/69; PULSE 88; RESP 16; TEMP 37.7; O2SAT 96
[2020-05-12 17:27] LABS: CEA 1.7 ng/mL (See Note)
[2020-05-13 09:11] LABS: Magnesium 2.4 mg/dL (1.8-2.4); Triglyceride 124 mg/dL (<150)
[2020-05-13 09:22] LABS: PHOSPHORUS 3.7 mg/dL (2.6-4.7)
== END 2020-05-18 23:59 | disposition home or self-care (01) ==
LOC: INF 07:25
PROVIDERS: PCP Family Medicine; Visit Provider Internal Medicine Hematology & Oncology
DX: Z79.899 Other long term (current) drug therapy (principal); C16.9 Malignant neoplasm of stomach, unspecified; E43 Unspecified severe protein-calorie malnutrition
CPT/HCPCS: 36430; 36591; 80053; 86850; 86900; 86901; 86920; 82378; 83735; 84100; 84478; 85025; P9016

== ENCOUNTER 2020-05-31 13:17 | Emergency (ER) | payer OTHER, SELFPAY ==
[2020-05-31] VITALS (33 sets, daily range): BP systolic 104–128; BP diastolic 54–78; PULSE 90–108; RESP 15–32; TEMP 37.5; O2SAT 94–97
--- NOTE | 2020-05-31 13:15 | DI.RAD_ITS ---
EXAM: XR PORTABLE CHEST AP CLINICAL HISTORY: fever TECHNIQUE: 2D digital imaging was performed. COMPARISON: No exams were available for comparison FINDINGS: MEDIASTINUM: Normal. HEART: Normal. PULMONARY VASCULATURE: Normal. LUNGS: Clear. PLEURAL SPACE: No pleural effusion or pneumothorax. BONE:Within normal limits for the patient's age. OTHER FINDINGS:The patient has both right and left central venous catheters. The tips are in good po sition in the superior vena cava. IMPRESSION: No acute pulmonary findings. DATA REPOSITORY: RADIATION DOSE DELIVERED:
--- NOTE | 2020-05-31 13:23 | ED.GENADUL_ITS ---
Discharge Plan Disposition Patient Disposition: HOME Condition: Stable Discharge Details Clinical Impression: UTI (urinary tract infection) Primary Care Provider: Zain Velazquez ED Provider: Lex Wahl Douglass Meds and New Rx's Prescriptions: New amoxicillin-pot clavulanate [Augmentin] 875-125 mg tablet 1 tab PO BID Qty: 20 RF: 0 Continued fentanyl 25 mcg/hr Patch 72 Hour 25 mcg transdermal Q72H RF: 0 omeprazole 10 mg Capsule,Delayed Release(Dr/Ec) 10 mg PO DAILY RF: 0 Eliquis 5 mg Tablet 5 mg DAILY RF: 0 oxaliplatin 50 mg/10 mL (5 mg/mL) Solution 50 mg IV Q2W RF: 0 leucovorin calcium 10 mg/mL Solution 10 mg IV Q2W RF: 0 sennosides-docusate sodium 8.6-50 mg Tablet 2 tab PO BID RF: 0 prochlorperazine maleate 10 mg Tablet 10 mg PO Q6H PRN PRN (Reason: Nausea) RF: 0 lorazepam 0.5 mg Tablet 0.5 mg PO Q6H PRN PRN (Reason: Anxiety) RF: 0 ondansetron 4 mg Tablet,Disintegrating 4 mg PO Q8H PRN PRN (Reason: Nausea) RF: 0 oxycodone 5 mg Tablet 5 mg PO Q6H PRN PRN (Reason: Pain, Moderate) RF: 0 Discharge Instructions Instructions: Urinary Tract Infection in Women (ED) Additional Instructions: Augmentin as directed. Plenty of fluids to avoid dehydration. [id number] Tylenol as directed for discomfort. Please watch for new or worsening symptoms and return to the ER for any concerns. I recommend contacting your primary care provider and oncology team tomorrow to discuss your evaluation and prompt outpatient reevaluation. Discharge Data Discharge Date/Time-TO BE ENTERED AT DEPARTURE: 05/31/20 17:17 Medical Decision Making This is a 64-year-old female who is currently being treated for gastric cancer. Gets infusions of Leucovorin calcium, oxaliplatin every 2 weeks. She had her normal fusion on Saturday and felt tired as she typically does. Subsequently developed a fever 99.7 and then today noted to be 102.9. She did vomit 1 time earlier today. Clinically she appears well, nontoxic, she is currently afebrile and her blood pressure is 105/78. Will initiate septic work-up, give IV fluids, reassess. There is no clear source of her infection. White blood cell count of 4.2 with appropriate ANC. This does not appear to be a true neutropenic fever. I did speak with heme-onc at [facility], Dr. Hartman, at 1500. Because the patient is not neutropenic, does not have any obvious antibiotic recommendations. Recommends treating the source but states that Augmentin will be a good choice in this patient Laboratory values otherwise reveal hemoglobin 11.0 hematocrit 33.7 platelet count 265. Lactate 1.9 potassium 4.2 creatinine 1.2 with a GFR of 45.23 glucose 161 calcium 9.0 total bili 1.3 AST 47 ALT 60 alk phosphatase 374, troponin less than 0.05, urinalysis reveals moderate blood, nitrite positive, large leuk esterase, greater than 50 red cells and white cells. Covid, RSV, flu Infection in the ER and identified. Will give 2 g IV Rocephin. Lactate slightly elevated at 1.9, procalcitonin normal. Patient will receive a second liter of IV fluid Heart rate in the 90s, blood pressure up to 113/60. I had a very candid conversation with the patient and her on the phone. Patient is currently being treated for gastric cancer, high risk patient. Clear source of infection identified in her urine. She had a high fever earlier today, afebrile now, lactate slightly elevated. No evidence of neutropenic fever. Admission offered but patient declines. She would prefer to trial outpatient therapy. She does not appear septic at this moment and I believe that this is reasonable but have voiced my concerns and stressed the importance of returning immediately for new or evolving symptoms otherwise the importance of outpatient follow-up through her primary care and oncology team. Patient is comfortable with this plan and has no additional questions or concerns. Medical Records Medical records reviewed: Yes I reviewed the patient's medical records. Imaging Data Radiologic Study: Attestation: I personally reviewed and interpreted this imaging study as follows: Imaging: X-Ray Radiologist's impression: Chest x-ray negative Lab Data Lab results reviewed: Yes I reviewed the patient's lab results. Labs: 05/31/20 13:35 Blood Blood Culture - Preliminary NO GROWTH 24 HOURS 05/31/20 13:42 Blood Blood Culture - Preliminary NO GROWTH 24 HOURS Laboratory Tests Range/Units 05/31/20 05/31/20 05/31/20 12:55 13:24 13:24 WBC Cancelled RBC Cancelled Hgb Cancelled Hct Cancelled MCV Cancelled MCH Cancelled MCHC Cancelled RDW Cancelled Plt Count Cancelled MPV Cancelled Immature Gran % Cancelled Neutrophils % Cancelled Band Neutrophils % Cancelled Lymphocytes % Cancelled Atypical Lymphs % Cancelled Monocytes % Cancelled Eosinophils % Cancelled Basophils % Cancelled Metamyelocytes % Cancelled Myelocytes % Cancelled Promyelocytes % Cancelled Other Cells % Cancelled Nucleated RBC % Cancelled Absolute Neutrophils Cancelled Absolute Lymphocytes Cancelled Absolute Monocytes Cancelled Absolute Eosinophils Cancelled Absolute Basophils Cancelled RBC Morphology Cancelled Polychromasia Cancelled Hypochromasia Cancelled Poikilocytosis Cancelled Basophilic Stippling Cancelled Anisocytosis Cancelled Microcytosis Cancelled Macrocytosis Cancelled Spherocytes Cancelled Tear Drop Cells Cancelled Ovalocytes Cancelled Stomatocytes Cancelled Hurt-Redkey Bodies Cancelled Rachel Cells/Echinocytes Cancelled Acanthocytes (Spur) Cancelled Schistocytes Cancelled VBG Lactate (0.6-1.4) mmol/L Sodium Cancelled Potassium Cancelled Chloride Cancelled Carbon Dioxide Cancelled Anion Gap Cancelled BUN Cancelled Creatinine Cancelled Estimated GFR/1.73 m2 Cancelled Glucose Cancelled Calcium Cancelled Magnesium (1.8-2.4) mg/dL 2.6 H Total Bilirubin Cancelled AST Cancelled ALT Cancelled Alkaline Phosphatase Cancelled Troponin I (<0.06) ng/mL < 0.05 Total Protein Cancelled Albumin Cancelled Procalcitonin ng/mL COVID-19 Source SARS-CoV-2 (PCR) (Negative) Influenza Type A (PCR) (Negative) Influenza Type B (PCR) (Negative) RSV (PCR) (Negative) Range/Units 05/31/20 05/31/20 13:42 14:10 WBC RBC Hgb Hct MCV MCH MCHC RDW Plt Count MPV Immature Gran % Neutrophils % Band Neutrophils % Lymphocytes % Atypical Lymphs % Monocytes % Eosinophils % Basophils % Metamyelocytes % Myelocytes % Promyelocytes % Other Cells % Nucleated RBC % Absolute Neutrophils Absolute Lymphocytes Absolute Monocytes Absolute Eosinophils Absolute Basophils RBC Morphology Polychromasia Hypochromasia Poikilocytosis Basophilic Stippling Anisocytosis Microcytosis Macrocytosis Spherocytes Tear Drop Cells Ovalocytes Stomatocytes Hurt-Redkey Bodies Rachel Cells/Echinocytes Acanthocytes (Spur) Schistocytes VBG Lactate (0.6-1.4) mmol/L 1.9 H Sodium Potassium Chloride Carbon Dioxide Anion Gap BUN Creatinine Estimated GFR/1.73 m2 Glucose Calcium Magnesium (1.8-2.4) mg/dL Total Bilirubin AST ALT Alkaline Phosphatase Troponin I (<0.06) ng/mL Total Protein Albumin Procalcitonin ng/mL 0.2 COVID-19 Source Nasopharyx SARS-CoV-2 (PCR) (Negative) Negative Influenza Type A (PCR) (Negative) Negative Influenza Type B (PCR) (Negative) Negative RSV (PCR) (Negative) Negative ECG Data Attestation: I personally reviewed and interpreted this ECG (s) as follows: Interpretation: Please see official report by Dr. Duran. Sinus tachycardia, ventricular rate of 100. HPI General Mode of arrival: wheelchair . Date/Time Provider Initiated Documentation: 05/31/20 13:17 . Limitations to Documentation: no limitations . Information obtained by: patient . HPI Narrative: This is a 64-year-old female currently being treated for gastric cancer. She states that she typically gets chemotherapy infusion on Saturday, goes home with a pump and the infusion is done over the weekend. Typically after the infusion she feels it very tired and this was no different than her baseline. She felt as though yesterday she developed a low-grade fever 99.7. Today she went for a routine blood draw and had fever of 102.9 was documented. Patient denies any obvious source. Reports mild urinary frequency and cloudy urine over the past couple of days. May be minimal dysuria. She denies recent trauma or other illness. Denies headache, neck pain, chest pain, shortness of breath, nausea, frequency, diarrhea, skin rash, numbness, tingling, weakness. She does report mild intermittent abdominal cramping but this is unchanged from her baseline. After it was noted that she had a fever, she was sent down for further evaluation for potential neutropenic fever given her chemotherapy. She did vomit one time this morning after taking her usual medications. She does take Eliquis daily. Related Data Home Medications Medication Instructions Recorded Confirmed Eliquis 5 mg DAILY 05/31/20 05/31/20 amoxicillin-pot clavulanate 1 tab PO BID #20 tab 05/31/20 [Augmentin] fentanyl 25 mcg TRANSDERMAL Q72H 05/31/20 05/31/20 leucovorin calcium 10 mg IV Q2W 05/31/20 05/31/20 lorazepam 0.5 mg PO Q6H PRN PRN 05/31/20 05/31/20 omeprazole 10 mg PO DAILY 05/31/20 05/31/20 ondansetron 4 mg PO Q8H PRN PRN 05/31/20 05/31/20 oxaliplatin 50 mg IV Q2W 05/31/20 05/31/20 oxycodone 5 mg PO Q6H PRN PRN 05/31/20 05/31/20 prochlorperazine maleate 10 mg PO Q6H PRN PRN 05/31/20 05/31/20 sennosides-docusate sodium 2 tab PO BID 05/31/20 05/31/20 Previous Rx's Medication Instructions Recorded amoxicillin-pot clavulanate 1 tab PO BID #20 tab 05/31/20 [Augmentin] Allergies Allergy/AdvReac Type Severity Reaction Status Date / Time chem Allergy Uncoded 05/31/20 13:35 Review of Systems Constitutional Constitutional: Reports fatigue, Reports fever(s) and Denies headache(s) ENT Ears, Nose, Mouth, and Throat: Denies headache(s) and Denies neck pain Cardiovascular Cardiovascular: Denies chest pain and Denies dyspnea Respiratory Respiratory: Denies cough and Denies dyspnea Gastrointestinal Gastrointestinal: Reports abdominal pain, Denies diarrhea, Denies nausea and Reports vomiting Genitourinary Genitourinary: Denies dysuria Musculoskeletal Musculoskeletal: Denies neck pain, Denies numbness and Denies tingling Integumentary/Breasts Skin/Breast: Denies rash Neurologic Neurologic: Denies headache(s), Denies numbness, Denies tingling and Reports weakness (Generalized) Endocrine Endocrine: Reports fatigue Hematologic/Lymphatic Hematologic/Lymphatic: Reports easy bleeding and Reports easy bruising [facility] Social History Smoking/Tobacco Use Status: Never Smoking risk assessment performed?: Yes Alcohol Intake: former Substance use type: does not use Do you feel safe at home: Yes Do you feel safe in your relationship?: Yes Exam Const General: cooperative, healthy appearing, comfortable and no acute distress Orientation: alert, awake and oriented x3 [facility] Head: normal to inspection, normocephalic and atraumatic Face and sinus: normal facial exam Mouth: moist mucous membranes abnormal (Slightly dry) Throat: posterior oropharynx normal Eyes General: appearance normal, both eyes and all related structures Alignment and Position: alignment normal Periorbital: periorbital findings normal Eyelids: eyelids normal Conjunctivae: conjunctivae normal Sclera: sclerae normal Cornea: corneas normal Neck Neck: normal visual inspection, full ROM, no lymphadenopathy, no meningeal signs, trachea midline, supple and nontender Chest Other: Port left chest. Appears well functioning. Nontender without erythema, warmth, drainage. No signs of secondary infection Resp Effort & Inspection: normal respiratory effort and able to speak in complete sentences Auscultation: clear to auscultation bilaterally Cardio Rate: regular rate Rhythm: regular rhythm GI Palpation: soft, not firm, no guarding, no pulsatile masses and nontender Auscultation: normal bowel sounds Other: There is a drain catheter in the left epigastric region. No signs of erythema, warmth or secondary infection. Back/Spine/Pelvis Back: No back tenderness Skin General skin exam: no rashes or lesions noted Neuro General: patient alert, patient awake, patient oriented x3, moves all extremities and no focal motor deficits Cognition: normal cognition Speech: speech normal Gait: normal gait Motor: muscle tone normal throughout Sensory Exam: no sensory deficits noted Extrem General: normal to inspection, full ROM, capillary refill normal, no pedal edema and no calf tenderness Other: PICC line, right upper extremity. Appears well-appearing, without erythema, warmth, drainage, tenderness. No signs of infection Psych Appearance: grossly normal Mental Status: mental status grossly normal
[2020-05-31 13:53] LABS: Lactate 1.9 mmol/L (0.6-1.4)
--- NOTE | 2020-05-31 14:00 | RT.EKG_ITS ---
APPROVED REPORT Exam: Resting ECG Patient Location: E HR:100 bpm ECG Measurements Heart Rate 100 AXIS TN 136 P 35 QRSd 77 QRS -6 QT 311 T 31 QTc 401 Conclusion Sinus tachycardia...rate> 99
[2020-05-31] MEDS: Normal Saline 1,000 ML 1000 ML IV ×2 (14:15→16:06)
[2020-05-31 14:28] LABS: Procalcitonin 0.2 ng/mL
[2020-05-31 14:39] LABS: Magnesium 2.6 mg/dL (1.8-2.4)
[2020-05-31 14:40] LABS: Troponin I < 0.05 ng/mL (<0.06)
[2020-05-31 15:44] LABS: COVID-19 PCR Negative (Negative); Influenza A PCR Negative (Negative); Influenza B PCR Negative (Negative); RSV PCR Negative (Negative)
[2020-05-31] MEDS: cefTRIAXone 2 GM/50 ML BAG IVPB (16:01)
[2020-05-31] MEDS: Heparin 500 UNITS/5 ML SYRINGE (17:04)
== END 2020-05-31 17:17 | disposition home or self-care (01) ==
PROVIDERS: Emergency Provider Physician Assistant; PCP Family Medicine
DX: N39.0 Urinary tract infection, site not specified (principal); Z20.822 Contact with and (suspected) exposure to COVID-19
CPT/HCPCS: 80053; 84145; 87040; 87637; 93005; 96361; 96365; 99284; 71045; 83605; 83735; 84484; 85025; 93010; 99283

== ENCOUNTER 2020-06-17 04:25 | Outpatient (RCR) | payer OTHER, SELFPAY ==
[2020-05-19 00:14] VITALS: BP 110/69; PULSE 88; RESP 16; TEMP 37.7
[2020-05-26] MEDS: Normal Saline Flush 10 ML SYR IVP (08:07)
[2020-05-26 08:28] LABS: Abs Immature Grans 0.02 10^3/uL (0.0-0.06); Absolute Basophil Count 0.01 10^3/uL (0.0-0.2); Absolute Eosinophil Count 0.06 10^3/uL (0.0-0.7); Absolute Lymphocyte Count 1.26 10^3/uL (1.2-3.4); Absolute Monocyte Count 1.02 10^3/uL (0.1-0.8); Absolute Neutrophil Count 1.49 10^3/uL (1.2-6.7); Basophils % 0.3; Eosinophils % 1.6; HCT 33.2 % (36.0-46.0); HGB 10.5 g/dL (11.2-15.7); Immature Grans % 0.5; Lymphocytes % 32.6; MCH 27.2 pg (27.0-33.0); MCHC 31.6 % (32.0-36.0); Monocytes % 26.4; Neutrophils % 38.6; Nucleated RBC 0 %; RBC 3.86 10^6/uL (3.93-5.22); RDW 21.2 % (11.7-14.6); RDW-SD 65.8 fL; WBC 3.86 10^3/uL (4.4-10.8)
[2020-05-26 08:43] LABS: ALT 57 U/L (14-59); AST 47 U/L (15-37); Alkaline Phosphatase 421 U/L (46-116); BUN 14 mg/dL (7-18); Bilirubin, Total 0.7 mg/dL (0.2-1.0); CREATININE 0.9 mg/dL (0.55-1.02); Calcium 9.5 mg/dL (8.5-10.1); Chloride 104 mmol/L (98-107); Glucose 128 mg/dL (74-106); Potassium 3.9 mmol/L (3.5-5.1); Sodium 137 mmol/L (136-145); Total Protein 7.8 g/dL (6.4-8.2)
[2020-05-26 08:46] LABS: Anisocytosis 1+; Diff Comment Diff Reviewed; Platelet Count 205 10^3/uL (130-400)
[2020-05-27 09:16] LABS: Magnesium 2.2 mg/dL (1.8-2.4); Triglyceride 144 mg/dL (<150)
[2020-05-27 09:24] LABS: PHOSPHORUS 4.8 mg/dL (2.6-4.7)
[2020-05-31 13:14] LABS: Abs Immature Grans 0.03 10^3/uL (0.0-0.06); Absolute Basophil Count 0.01 10^3/uL (0.0-0.2); Absolute Eosinophil Count 0.01 10^3/uL (0.0-0.7); Absolute Lymphocyte Count 0.93 10^3/uL (1.2-3.4); Absolute Monocyte Count 0.22 10^3/uL (0.1-0.8); Basophils % 0.2; Eosinophils % 0.2; HCT 33.7 % (36.0-46.0); Immature Grans % 0.7; Lymphocytes % 22.1; MCH 27.9 pg (27.0-33.0); MCHC 32.6 % (32.0-36.0); MCV 85.5 fL (80-95); MPV 12.5 fL (8.0-11.0); Monocytes % 5.2; Neutrophils % 71.6; Nucleated RBC 0 %; Platelet Count 265 10^3/uL (130-400); RBC 3.94 10^6/uL (3.93-5.22); RDW 21.4 % (11.7-14.6); RDW-SD 66.8 fL
[2020-05-31 13:19] LABS: Absolute Neutrophil Count 3.01 10^3/uL (1.2-6.7); Bilirubin Negative (Negative); Blood Moderate (Negative); Clarity Cloudy (Clear); Glucose Negative (Negative); Ketones Negative (Negative); Leukocyte Esterase Large (Negative); Nitrite Positive (Negative); Specific Gravity 1.025 (1.005-1.025); Urobilinogen 0.2 EU/dL (Up TO 0.2); pH 5.5 (5-8)
[2020-05-31 13:28] LABS: ALT 60 U/L (14-59); AST 47 U/L (15-37); Albumin 2.9 g/dL (3.4-5.0); Alkaline Phosphatase 374 U/L (46-116); Anion Gap 11.1 mmol/L (3-11); BUN 20 mg/dL (7-18); Bilirubin, Total 1.3 mg/dL (0.2-1.0); CO2 25.9 mmol/L (21.0-32.0); CREATININE 1.2 mg/dL (0.55-1.02); Chloride 99 mmol/L (98-107); Estimated GFR 45.23 (mL/min/1.73m2); Glucose 161 mg/dL (74-106); Potassium 4.2 mmol/L (3.5-5.1); Sodium 136 mmol/L (136-145); Total Protein 8.1 g/dL (6.4-8.2)
[2020-05-31 13:38] LABS: Bacteria Few HPF (Negative); C & S Indicated? Yes; Casts Negative LPF (Negative); Crystals Negative HPF (Negative); Epithelial Cells Rare HPF (Negative); Mucus Trace (Negative); RBC >50 HPF (0-2); WBC >50 HPF (0-5)
[2020-06-09] MEDS: Normal Saline Flush 10 ML SYR IVP (08:06)
[2020-06-09 08:30] LABS: Abs Immature Grans 0.02 10^3/uL (0.0-0.06); Absolute Basophil Count 0.01 10^3/uL (0.0-0.2); Absolute Eosinophil Count 0.02 10^3/uL (0.0-0.7); Absolute Lymphocyte Count 1.54 10^3/uL (1.2-3.4); Absolute Monocyte Count 0.87 10^3/uL (0.1-0.8); Absolute Neutrophil Count 0.88 10^3/uL (1.2-6.7); Basophils % 0.3; Eosinophils % 0.6; HCT 30.2 % (36.0-46.0); HGB 9.9 g/dL (11.2-15.7); Immature Grans % 0.6; Lymphocytes % 46.1; MCH 28.6 pg (27.0-33.0); MCHC 32.8 % (32.0-36.0); MCV 87.3 fL (80-95); MPV 12.5 fL (8.0-11.0); Neutrophils % 26.4; Nucleated RBC 0 %; RBC 3.46 10^6/uL (3.93-5.22); RDW 23.3 % (11.7-14.6); RDW-SD 74.1 fL; WBC 3.34 10^3/uL (4.4-10.8)
[2020-06-09 08:42] LABS: ALT 60 U/L (14-59); AST 55 U/L (15-37); Albumin 2.9 g/dL (3.4-5.0); Alkaline Phosphatase 402 U/L (46-116); Anion Gap 9.4 mmol/L (3-11); BUN 15 mg/dL (7-18); Bilirubin, Total 0.6 mg/dL (0.2-1.0); CO2 24.6 mmol/L (21.0-32.0); CREATININE 0.9 mg/dL (0.55-1.02); Calcium 9.3 mg/dL (8.5-10.1); Chloride 106 mmol/L (98-107); Glucose 100 mg/dL (74-106); Potassium 4.2 mmol/L (3.5-5.1); Sodium 140 mmol/L (136-145); Total Protein 7.4 g/dL (6.4-8.2); Triglyceride 193 mg/dL (<150)
[2020-06-09 08:52] LABS: PHOSPHORUS 4.4 mg/dL (2.6-4.7)
[2020-06-09 08:54] LABS: Diff Comment Agrees w/ Instrument; Platelet Count 230 10^3/uL (130-400)
[2020-06-09 08:55] LABS: Anisocytosis 3+; Basophilic Stippling Present; Macrocytosis 1+; Microcytosis 1+; Polychromasia Present
[2020-06-09 08:56] LABS: Poikilocytes 2+
[2020-06-09 18:10] LABS: CEA 1.3 ng/mL (See Note)
[2020-06-10 23:04] LABS: Chromium, Serum 0.6 ng/mL (<0.3)
[2020-06-11 11:15] LABS: Selenium, Serum 114 ng/mL (70-150); Zinc, Serum 0.82 mcg/mL (0.66-1.10)
[2020-06-14 13:11] LABS: Manganese, Serum <1.0 ng/mL (<2.4)
[2020-06-17] MEDS: Normal Saline Flush 10 ML SYR IVP (07:35)
[2020-06-17 07:44] LABS: Abs Immature Grans 0.13 10^3/uL (0.0-0.06); Absolute Basophil Count 0.03 10^3/uL (0.0-0.2); Absolute Eosinophil Count 0.06 10^3/uL (0.0-0.7); Absolute Lymphocyte Count 1.96 10^3/uL (1.2-3.4); Absolute Monocyte Count 1.58 10^3/uL (0.1-0.8); Absolute Neutrophil Count 5.63 10^3/uL (1.2-6.7); Basophils % 0.3; Eosinophils % 0.6; HGB 10.2 g/dL (11.2-15.7); Immature Grans % 1.4; Lymphocytes % 20.9; MCH 28.9 pg (27.0-33.0); MCHC 31.9 % (32.0-36.0); MCV 90.7 fL (80-95); MPV 11.2 fL (8.0-11.0); Monocytes % 16.8; Nucleated RBC 0 %; Platelet Count 337 10^3/uL (130-400); RBC 3.53 10^6/uL (3.93-5.22); RDW 23.5 % (11.7-14.6); RDW-SD 77.8 fL; WBC 9.39 10^3/uL (4.4-10.8)
[2020-06-17 07:54] LABS: ALT 36 U/L (14-59); AST 32 U/L (15-37); Albumin 2.8 g/dL (3.4-5.0); Alkaline Phosphatase 374 U/L (46-116); Anion Gap 10.6 mmol/L (3-11); BUN 15 mg/dL (7-18); Bilirubin, Total 0.6 mg/dL (0.2-1.0); CO2 23.4 mmol/L (21.0-32.0); Chloride 103 mmol/L (98-107); Estimated GFR 55.82 (mL/min/1.73m2); Glucose 96 mg/dL (74-106); PHOSPHORUS 4.4 mg/dL (2.6-4.7); Potassium 4.3 mmol/L (3.5-5.1); Sodium 137 mmol/L (136-145); Total Protein 7.9 g/dL (6.4-8.2)
[2020-06-17 08:02] LABS: Anisocytosis 2+; Diff Comment Diff Reviewed; Hypochromasia 1+; Poikilocytes 1+
[2020-06-17 08:06] LABS: Triglyceride 113 mg/dL (<150)
[2020-06-17 12:20] LABS: Bilirubin Negative (Negative); Blood Large (Negative); Clarity Cloudy (Clear); Glucose Negative (Negative); Ketones Negative (Negative); Leukocyte Esterase Large (Negative); Nitrite Negative (Negative); Specific Gravity 1.015 (1.005-1.025); Urobilinogen 0.2 EU/dL (Up TO 0.2); pH 5.5 (5-8)
[2020-06-17 12:29] LABS: Epithelial Cells Few HPF (Negative); Other Cells Few Transitional (Negative); RBC 20-50 HPF (0-2); WBC >50 HPF (0-5)
[2020-06-17 12:30] LABS: Bacteria Many HPF (Negative); C & S Indicated? Yes; Casts Negative LPF (Negative); Crystals Negative HPF (Negative); Mucus Trace (Negative)
== END 2020-06-17 23:59 | disposition home or self-care (01) ==
LOC: INF 04:25
PROVIDERS: Nurse Practitioner Family; PCP Family Medicine; Visit Provider Internal Medicine Hematology & Oncology
DX: C16.9 Malignant neoplasm of stomach, unspecified (principal); Z45.2 Encounter for adjustment and management of vascular access device; E43 Unspecified severe protein-calorie malnutrition; Z78.9 Other specified health status; C79.9 Secondary malignant neoplasm of unspecified site; K83.1 Obstruction of bile duct; R31.0 Gross hematuria
CPT/HCPCS: 36591; 80053; 86900; 86901; 87077; 81003; 81015; 82378; 82495; 82525; 83735; 83785; 84100; 84255; 84478; 84630; 85025; 87086; 87186

== ENCOUNTER 2020-07-15 04:09 | Outpatient (RCR) | payer OTHER, SELFPAY ==
[2020-06-18 00:23] VITALS: BP 110/69; PULSE 88; RESP 16; TEMP 37.7
[2020-07-01] MEDS: Normal Saline Flush 10 ML SYR IVP (08:05)
[2020-07-01 08:16] LABS: HCT 31.5 % (36.0-46.0); HGB 10.2 g/dL (11.2-15.7); MCH 29.2 pg (27.0-33.0); MCHC 32.4 % (32.0-36.0); MCV 90.3 fL (80-95); MPV 12.4 fL (8.0-11.0); Platelet Count 207 10^3/uL (130-400); RBC 3.49 10^6/uL (3.93-5.22); RDW 23.4 % (11.7-14.6); RDW-SD 76.8 fL; WBC 11.66 10^3/uL (4.4-10.8)
[2020-07-01 08:30] LABS: ALT 46 U/L (14-59); AST 44 U/L (15-37); Absolute Eosinophil Count 0.12 10^3/uL (0.0-0.7); Absolute Lymphocyte Count 3.03 10^3/uL (1.2-3.4); Absolute Monocyte Count 0.93 10^3/uL (0.1-0.8); Absolute Neutrophil Count 7.46 10^3/uL (1.2-6.7); Alkaline Phosphatase 404 U/L (46-116); Anion Gap 10.8 mmol/L (3-11); BUN 14 mg/dL (7-18); Bands % 1; Bilirubin, Total 0.5 mg/dL (0.2-1.0); CO2 22.2 mmol/L (21.0-32.0); CREATININE 0.9 mg/dL (0.55-1.02); Calcium 9.1 mg/dL (8.5-10.1); Chloride 106 mmol/L (98-107); Glucose 95 mg/dL (74-106); Metamyelocytes % 1; Nucleated RBC 1 %; Sodium 139 mmol/L (136-145); Total Protein 7.6 g/dL (6.4-8.2)
[2020-07-01 08:31] LABS: Anisocytosis 2+; Diff Comment Manual Differential; Macrocytosis 1+; Poikilocytes 1+; Polychromasia Present
[2020-07-01 10:57] LABS: Magnesium 2.1 mg/dL (1.8-2.4); Triglyceride 262 mg/dL (<150)
[2020-07-01 11:11] LABS: PHOSPHORUS 5.7 mg/dL (2.6-4.7)
[2020-07-01 17:02] LABS: CEA 1.5 ng/mL (See Note)
[2020-07-15 08:01] LABS: Abs Immature Grans 0.38 10^3/uL (0.0-0.06); Absolute Basophil Count 0.04 10^3/uL (0.0-0.2); Absolute Eosinophil Count 0.09 10^3/uL (0.0-0.7); Absolute Lymphocyte Count 2.04 10^3/uL (1.2-3.4); Absolute Monocyte Count 1.41 10^3/uL (0.1-0.8); Absolute Neutrophil Count 5.96 10^3/uL (1.2-6.7); Basophils % 0.4; Eosinophils % 0.9; HCT 29.7 % (36.0-46.0); HGB 9.6 g/dL (11.2-15.7); Immature Grans % 3.8; Lymphocytes % 20.6; MCH 30.5 pg (27.0-33.0); MCHC 32.3 % (32.0-36.0); MCV 94.3 fL (80-95); MPV 11.3 fL (8.0-11.0); Monocytes % 14.2; Neutrophils % 60.1; Nucleated RBC 0 %; Platelet Count 144 10^3/uL (130-400); RBC 3.15 10^6/uL (3.93-5.22); RDW 23.3 % (11.7-14.6); RDW-SD 80.3 fL; WBC 9.92 10^3/uL (4.4-10.8)
[2020-07-15] MEDS: Normal Saline Flush 10 ML SYR IVP (08:14)
[2020-07-15 08:27] LABS: ALT 49 U/L (14-59); AST 43 U/L (15-37); Alkaline Phosphatase 376 U/L (46-116); Anion Gap 8.8 mmol/L (3-11); BUN 8 mg/dL (7-18); Bilirubin, Total 0.6 mg/dL (0.2-1.0); CO2 25.2 mmol/L (21.0-32.0); CREATININE 0.8 mg/dL (0.55-1.02); Calcium 8.8 mg/dL (8.5-10.1); Chloride 109 mmol/L (98-107); Glucose 97 mg/dL (74-106); Potassium 3.9 mmol/L (3.5-5.1); Sodium 143 mmol/L (136-145); Total Protein 7.1 g/dL (6.4-8.2)
[2020-07-15 14:17] LABS: Magnesium 2.3 mg/dL (1.8-2.4); PHOSPHORUS 4.7 mg/dL (2.6-4.7)
[2020-07-15 14:28] LABS: Triglyceride 164 mg/dL (<150)
== END 2020-07-18 23:59 | disposition home or self-care (01) ==
LOC: INF 04:09
PROVIDERS: PCP Family Medicine; Visit Provider Internal Medicine Hematology & Oncology
DX: C16.9 Malignant neoplasm of stomach, unspecified (principal); Z45.2 Encounter for adjustment and management of vascular access device; E43 Unspecified severe protein-calorie malnutrition
CPT/HCPCS: 36591; 80053; 86900; 86901; 82378; 83735; 84100; 84478; 85025

== ENCOUNTER 2020-08-11 03:30 | Outpatient (RCR) | payer OTHER, SELFPAY ==
[2020-07-19 00:20] VITALS: BP 110/69; PULSE 88; RESP 16; TEMP 37.7
[2020-07-29] MEDS: Normal Saline Flush 10 ML SYR IVP (08:37)
[2020-07-29 08:47] LABS: HCT 27.2 % (36.0-46.0); HGB 8.8 g/dL (11.2-15.7); MCH 30.6 pg (27.0-33.0); MCHC 32.4 % (32.0-36.0); MCV 94.4 fL (80-95); MPV 12.1 fL (8.0-11.0); Nucleated RBC 0 %; Platelet Count 165 10^3/uL (130-400); RBC 2.88 10^6/uL (3.93-5.22); RDW 20.8 % (11.7-14.6); RDW-SD 71.2 fL; WBC 14.98 10^3/uL (4.4-10.8)
[2020-07-29 09:01] LABS: Absolute Lymphocyte Count 2.25 10^3/uL (1.2-3.4); Absolute Neutrophil Count 11.83 10^3/uL (1.2-6.7); Anisocytosis 1+; Bands % 2; Diff Comment Manual Differential
[2020-07-29 09:23] LABS: ALT 59 U/L (14-59); AST 47 U/L (15-37); Albumin 2.9 g/dL (3.4-5.0); Alkaline Phosphatase 421 U/L (46-116); BUN 10 mg/dL (7-18); Bilirubin, Total 0.5 mg/dL (0.2-1.0); CREATININE 0.9 mg/dL (0.55-1.02); Calcium 8.5 mg/dL (8.5-10.1); Chloride 110 mmol/L (98-107); Glucose 109 mg/dL (74-106); Potassium 3.4 mmol/L (3.5-5.1); Sodium 143 mmol/L (136-145); Total Protein 6.9 g/dL (6.4-8.2)
[2020-07-29 10:26] LABS: Reticulocyte 3.1 % (0.5-2.4)
[2020-07-29 10:32] LABS: Iron 40 ug/dL (50-170); Total Iron Binding Capacity 347 ug/dL (250-450); Transferrin Sat 12 % (15-50)
[2020-07-29 10:59] LABS: Ferritin 90 ng/mL (8-252)
[2020-07-29 11:04] LABS: Folate > 20.0 ng/mL (8.6-20.0); Vitamin B12 > 2000 pg/mL (193-986)
[2020-07-29 17:11] LABS: CEA 2.7 ng/mL (See Note)
[2020-08-11] MEDS: Normal Saline Flush 10 ML SYR IVP (08:15)
[2020-08-11 08:27] LABS: Abs Immature Grans 0.27 10^3/uL (0.0-0.06); Absolute Eosinophil Count 0.07 10^3/uL (0.0-0.7); Absolute Lymphocyte Count 1.63 10^3/uL (1.2-3.4); Absolute Monocyte Count 1.69 10^3/uL (0.1-0.8); Absolute Neutrophil Count 7.55 10^3/uL (1.2-6.7); Basophils % 0.4; Eosinophils % 0.6; HCT 27.5 % (36.0-46.0); HGB 8.6 g/dL (11.2-15.7); Immature Grans % 2.4; Lymphocytes % 14.5; MCH 30.9 pg (27.0-33.0); MCHC 31.3 % (32.0-36.0); MCV 98.9 fL (80-95); Neutrophils % 67.1; Nucleated RBC 0 %; Platelet Count 130 10^3/uL (130-400); RBC 2.78 10^6/uL (3.93-5.22); RDW 19.9 % (11.7-14.6); RDW-SD 72.7 fL; WBC 11.25 10^3/uL (4.4-10.8)
[2020-08-11 08:43] LABS: ALT 48 U/L (14-59); AST 41 U/L (15-37); Alkaline Phosphatase 377 U/L (46-116); BUN 10 mg/dL (7-18); Bilirubin, Total 0.4 mg/dL (0.2-1.0); CREATININE 0.9 mg/dL (0.55-1.02); Calcium 8.6 mg/dL (8.5-10.1); Chloride 108 mmol/L (98-107); Glucose 111 mg/dL (74-106); Sodium 142 mmol/L (136-145); Total Protein 7.1 g/dL (6.4-8.2)
[2020-08-11 08:54] LABS: Absolute Basophil Count 0.05 10^3/uL (0.0-0.2)
[2020-08-11 08:56] LABS: Anisocytosis 2+; Diff Comment Agrees w/ Instrument; Polychromasia Present
[2020-08-11 08:57] LABS: Poikilocytes 1+
[2020-08-11 17:07] LABS: CEA 3.5 ng/mL (See Note)
== END 2020-08-17 23:59 | disposition home or self-care (01) ==
LOC: INF 03:30
PROVIDERS: PCP Family Medicine; Visit Provider Internal Medicine Hematology & Oncology
DX: C16.9 Malignant neoplasm of stomach, unspecified (principal); Z45.2 Encounter for adjustment and management of vascular access device
CPT/HCPCS: 36591; 80053; 86900; 86901; 82378; 82607; 82728; 82746; 83540; 83550; 85025; 85045

== ENCOUNTER 2020-08-31 07:44 | Outpatient (REF) | payer OTHER, SELFPAY | END 2020-08-31 07:45 | disposition home or self-care (01) | LOC: LBN 07:44 | PROVIDERS: PCP Family Medicine; Visit Provider Urology | DX: N13.30 Unspecified hydronephrosis (principal); R39.89 Other symptoms and signs involving the genitourinary system | CPT/HCPCS: 87086 ==

== ENCOUNTER 2020-09-16 13:15 | Outpatient (RCR) | payer OTHER, SELFPAY ==
[2020-08-18 00:24] VITALS: BP 110/69; PULSE 88; RESP 16; TEMP 37.7
[2020-08-26 08:16] LABS: Abs Immature Grans 0.02 10^3/uL (0.0-0.06); Absolute Basophil Count 0.02 10^3/uL (0.0-0.2); Absolute Eosinophil Count 0.07 10^3/uL (0.0-0.7); Absolute Lymphocyte Count 1.14 10^3/uL (1.2-3.4); Absolute Neutrophil Count 3.95 10^3/uL (1.2-6.7); Basophils % 0.3; Eosinophils % 1.2; HCT 26.3 % (36.0-46.0); HGB 8.3 g/dL (11.2-15.7); Immature Grans % 0.3; MCH 30.5 pg (27.0-33.0); MCHC 31.6 % (32.0-36.0); MCV 96.7 fL (80-95); MPV 10.2 fL (8.0-11.0); Monocytes % 13.3; Neutrophils % 65.9; Nucleated RBC 0 %; Platelet Count 215 10^3/uL (130-400); RBC 2.72 10^6/uL (3.93-5.22); RDW 17.3 % (11.7-14.6); RDW-SD 61.2 fL
[2020-08-26] MEDS: Normal Saline Flush 10 ML SYR IVP (08:25)
[2020-08-26 08:31] LABS: ALT 38 U/L (14-59); AST 36 U/L (15-37); Albumin 2.9 g/dL (3.4-5.0); Alkaline Phosphatase 379 U/L (46-116); Anion Gap 12.7 mmol/L (3-11); BUN 18 mg/dL (7-18); Bilirubin, Total 0.6 mg/dL (0.2-1.0); CO2 20.3 mmol/L (21.0-32.0); CREATININE 1.3 mg/dL (0.55-1.02); Calcium 8.8 mg/dL (8.5-10.1); Chloride 108 mmol/L (98-107); Estimated GFR 41.11 (mL/min/1.73m2); Glucose 94 mg/dL (74-106); Potassium 4.3 mmol/L (3.5-5.1); Sodium 141 mmol/L (136-145); Total Protein 7.1 g/dL (6.4-8.2)
[2020-08-26 18:03] LABS: CEA 3.6 ng/mL (See Note)
[2020-09-05] MEDS: Normal Saline Flush 10 ML SYR IVP (08:10)
[2020-09-05] MEDS: Heparin 500 UNITS/5 ML SYRINGE IV (08:10)
[2020-09-05 08:51] LABS: Abs Immature Grans 0.02 10^3/uL (0.0-0.06); Absolute Basophil Count 0.01 10^3/uL (0.0-0.2); Absolute Eosinophil Count 0.09 10^3/uL (0.0-0.7); Absolute Lymphocyte Count 0.85 10^3/uL (1.2-3.4); Absolute Monocyte Count 0.49 10^3/uL (0.1-0.8); Absolute Neutrophil Count 3.27 10^3/uL (1.2-6.7); Basophils % 0.2; Eosinophils % 1.9; HCT 25.2 % (36.0-46.0); Immature Grans % 0.4; MCHC 31.7 % (32.0-36.0); MCV 94.4 fL (80-95); MPV 11.4 fL (8.0-11.0); Monocytes % 10.4; Neutrophils % 69.1; Nucleated RBC 0 %; Platelet Count 204 10^3/uL (130-400); RBC 2.67 10^6/uL (3.93-5.22); RDW 16.7 % (11.7-14.6); RDW-SD 57.8 fL; WBC 4.73 10^3/uL (4.4-10.8)
[2020-09-05 09:35] VITALS: BP 110/69; PULSE 88; RESP 16; TEMP 37.7
[2020-09-05 10:31] VITALS: BP 105/64; PULSE 70; RESP 18; TEMP 36.4; O2SAT 98
[2020-09-05 10:50] VITALS: BP 108/63; PULSE 97; RESP 16; TEMP 36.4; O2SAT 97
[2020-09-05 11:16] VITALS: BP 107/64; PULSE 69; RESP 16; TEMP 35.9; O2SAT 98
[2020-09-05 12:25] VITALS: BP 129/69; PULSE 72; RESP 16; TEMP 36; O2SAT 99
[2020-09-16 13:39] LABS: Abs Immature Grans 0.01 10^3/uL (0.0-0.06); Absolute Basophil Count 0.02 10^3/uL (0.0-0.2); Absolute Eosinophil Count 0.06 10^3/uL (0.0-0.7); Absolute Lymphocyte Count 0.95 10^3/uL (1.2-3.4); Absolute Monocyte Count 0.66 10^3/uL (0.1-0.8); Absolute Neutrophil Count 3.84 10^3/uL (1.2-6.7); Basophils % 0.4; Eosinophils % 1.1; HCT 27.3 % (36.0-46.0); HGB 8.6 g/dL (11.2-15.7); Immature Grans % 0.2; Lymphocytes % 17.1; MCH 28.9 pg (27.0-33.0); MCHC 31.5 % (32.0-36.0); MCV 91.6 fL (80-95); Monocytes % 11.9; Neutrophils % 69.3; Nucleated RBC 0 %; Platelet Count 179 10^3/uL (130-400); RBC 2.98 10^6/uL (3.93-5.22); RDW 15.9 % (11.7-14.6); RDW-SD 53.6 fL; WBC 5.54 10^3/uL (4.4-10.8)
[2020-09-16] MEDS: Heparin 500 UNITS/5 ML SYRINGE IV (13:41)
[2020-09-16] MEDS: Normal Saline Flush 10 ML SYR IVP (13:41)
[2020-09-16 13:48] LABS: ALT 27 U/L (14-59); AST 28 U/L (15-37); Alkaline Phosphatase 235 U/L (46-116); Anion Gap 10.1 mmol/L (3-11); BUN 13 mg/dL (7-18); Bilirubin, Total 0.7 mg/dL (0.2-1.0); CO2 22.9 mmol/L (21.0-32.0); CREATININE 0.9 mg/dL (0.55-1.02); Calcium 8.4 mg/dL (8.5-10.1); Chloride 109 mmol/L (98-107); Glucose 116 mg/dL (74-106); Potassium 3.8 mmol/L (3.5-5.1); Sodium 142 mmol/L (136-145)
[2020-09-16 22:37] LABS: CEA 3.6 ng/mL (See Note)
== END 2020-09-17 23:59 | disposition home or self-care (01) ==
LOC: INF 13:15
PROVIDERS: PCP Family Medicine; Visit Provider Internal Medicine Hematology & Oncology
DX: C16.9 Malignant neoplasm of stomach, unspecified (principal); Z45.2 Encounter for adjustment and management of vascular access device
CPT/HCPCS: 36430; 36591; 80053; 86850; 86900; 86901; 86920; 82378; 85025; P9016